=== PATIENT | female | born 1955 | race African-American/Black ===

== ENCOUNTER 2024-05-22 16:42 | Emergency (ER) | payer OTHER ==
[2024-05-22 16:56] VITALS: BP 172/83; PULSE 96; RESP 17; TEMP 97.9; BMI 29.6
[2024-05-22] MEDS ORDERED: ACETAMINOPHEN INJECTION 100 ML ONE (18:19)
[2024-05-22] MEDS: ACETAMINOPHEN 1000 MG/100 ML BAG IVPB ONE (18:51)
[2024-05-22] MEDS ORDERED: LOSARTAN POTASSIUM 50 MG TABLET ONE (18:52)
[2024-05-22] MEDS ORDERED: LIDOCAINE 5% TOPICAL PATCH ONE (18:53)
[2024-05-22] MEDS: LIDOCAINE 5% TOPICAL PATCH TP ONE (18:57)
[2024-05-22] MEDS: LOSARTAN POTASSIUM 50 MG TABLET PO ONE (18:57)
[2024-05-22 18:59] LABS: INR 0.98 (0.83-1.09); PROTHROMBIN TIME (PATIENT) 11.1 SEC (9.7-13.0)
[2024-05-22 19:02] LABS: ACTIVATED PTT 19.4 SECONDS (25.2-36.5)
[2024-05-22 19:32] LABS: POTASSIUM 4.4 mmol/L (3.5-5.1)
[2024-05-22 19:35] LABS: ALBUMIN 4.3 g/dl (3.4-5.0); BLOOD UREA NITROGEN 16.6 mg/dL (7-18); CALCIUM 9.8 mg/dL (8.5-10.1); MAGNESIUM 2.2 mg/dL (1.8-2.4)
[2024-05-22 19:38] LABS: CREATININE 0.9 mg/dL (0.55-1.3)
[2024-05-22 19:40] LABS: BILIRUBIN,TOTAL 0.7 mg/dL (0.2-1); TOT PROT 8.8 g/dl (6.4-8.2)
[2024-05-22 19:43] LABS: N-TERMINAL BNP 35.5 pg/ml (5-125)
[2024-05-22 20:56] LABS: BASO % 0.5 % (0-2.0); EOS % 0.2 % (0-4.5); HEMATOCRIT 38.4 % (32.4-45.2); HEMOGLOBIN 12.8 GM/dL (10.7-15.3); LYMPH % 29.7 % (8-40); MCHC 33.3 g/dl (32.0-36.0); MONO % 10.3 % (3.8-10.2); NEUT % 59.3 % (42.8-82.8); PLATELET COUNT 263 10^3/uL (134-434); RBC 4.26 M/mm3 (3.60-5.2); RDW 15.7 % (11.6-15.6)
[2024-05-22] MEDS ORDERED: ACETAMINOPHEN 325 MG TABLET (FP) ONE (21:06)
[2024-05-22] MEDS: ACETAMINOPHEN 500 MG TABLET (FP) PO ONE (21:08)
[2024-05-23] MEDS ORDERED: LIDOCAINE PATCH REMOVAL MC SCH (06:00)
== END 2024-05-23 02:50 | disposition admitted as inpatient to this hospital (09) ==
LOC: JERFT 16:42 → JER 16:42
DX: M54.6 Pain in thoracic spine (principal); R05.9 Cough, unspecified; R07.9 Chest pain, unspecified; M25.512 Pain in left shoulder; Z20.822 Contact with and (suspected) exposure to COVID-19
CPT/HCPCS: 0241U-QW; 36415; 71046-TC-FY; 71275-TC; 74174-TC; 80053; 83735; 83880; 84484; 85025; 85610; 85730; 93005; 93010; 99285-25; Q9967